=== PATIENT | male | born 1965 | race Hispanic/Latino ===

== ENCOUNTER → 2018-01-09 | Outpatient (CLI) | payer BC | END | disposition home or self-care (01) | LOC: OIH 15:13 | PROVIDERS: ATTEND Internal Medicine | DX: M47.26 Other spondylosis with radiculopathy, lumbar region (principal); M48.07 Spinal stenosis, lumbosacral region; M62.830 Muscle spasm of back | CPT/HCPCS: 72100 ==

== ENCOUNTER → 2024-07-21 | Outpatient (CLI) | payer BC ==
--- NOTE | 2024-07-21 16:42 | HMCIMG ---
CHEST 2VWS HISTORY: Acute bronchopneumonia COMPARISON: 01/28/2019 FINDINGS: Frontal and lateral projections of the chest were obtained. Mild bilateral pulmonary infiltrates are seen. The heart is not enlarged. Degenerative changes are seen. IMPRESSION: 1. Mild bilateral pulmonary infiltrates.
== END | disposition home or self-care (01) ==
LOC: RAH 15:16
PROVIDERS: ATTEND Internal Medicine
DX: R91.8 Other nonspecific abnormal finding of lung field (principal); J18.0 Bronchopneumonia, unspecified organism; M47.814 Spondylosis without myelopathy or radiculopathy, thoracic region
CPT/HCPCS: 71046